=== PATIENT | female | born 1950 | race Asian ===

== ENCOUNTER 2024-10-15 00:53 | Inpatient (IN) | payer MEDICARE, MEDICAID ==
[2024-10-15] VITALS (14 sets, daily range): BP systolic 103–158; BP diastolic 58–91; PULSE 69–119; RESP 20–33; TEMP 98.4–100; O2SAT 97–100
[~2024-10-15] VITALS: Ht 154.9 cm; Wt 49.6 kg
[2024-10-15] MEDS: NITROGLYCERIN 50 MG/D5% WATER 250 ML IV PRN (01:16)
[2024-10-15] MEDS: FUROSEMIDE 40 MG/4 ML VIAL IVP ONE (01:16)
[2024-10-15] MEDS: PROPOFOL 1000 MG/ISO-OSM 100 ML IV PRN ×2 (01:16→15:33)
[2024-10-15 01:41] LABS: BASOPHILS % (AUTO) 0.6 % (0.0-2.0); EOSINOPHILS % (AUTO) 3.2 % (1.0-6.0); HEMATOCRIT 31.4 % (36-46); HEMOGLOBIN 9.7 g/dL (12.0-16.0); LYMPHOCYTES # (AUTO) 2.5 K/uL (1.0-4.8); LYMPHOCYTES % (AUTO) 25.1 % (22.0-44.0); MEAN CORPUSCULAR HEMOGLOBIN 26.2 pg (26.0-34.0); MEAN CORPUSCULAR HGB CONC 30.9 G/dL (31.0-37.0); MEAN CORPUSCULAR VOLUME 85 fL (80-100); MONOCYTES # (AUTO) 0.6 K/uL (0.1-1.0); MONOCYTES % (AUTO) 5.6 % (2.0-9.0); NEUTROPHILS # (AUTO) 6.5 K/uL (1.8-7.7); NEUTROPHILS % (AUTO) 65.5 % (40.0-70.0); PLATELET COUNT (AUTO) 224 K/uL (150-450); RED CELL DISTRIBUTION WIDTH 16.1 % (11.5-14.5); WHITE BLOOD COUNT (AUTO) 9.9 K/uL (4.5-11.0)
[2024-10-15 01:48] LABS: APPEARANCE,URINE CLEAR (CLEAR); BILIRUBIN,URINE NEGATIVE (NEGATIVE); COLOR,URINE COLORLESS (YELLOW); GLUCOSE, URINE (UA) >=1000 mg/dL (NEGATIVE); KETONES,URINE NEGATIVE (NEGATIVE); LEUKOCYTE ESTERASE ,URINE NEGATIVE (NEGATIVE); NITRATE,URINE NEGATIVE (NEGATIVE); OCCULT BLOOD,URINE SMALL (NEGATIVE); PH,URINE 6.5 (5.0-8.0); PROTEIN,URINE 100-200,SEE CONFIRM mg/dL (NEGATIVE); SPECIFIC GRAVITIY, URINE 1.009 (1.003-1.030); UROBILINOGEN,URINE <=1.0 mg/dL (<=1.0)
[2024-10-15 01:49] LABS: ABG BASE EXCESS -7.9 mmol/L (-2.0-3.0); ABG CARBOXYHEMOGLOBIN 0.2 % (0.5-1.5); ABG HCO3 17.9 mmol/L (21.0-28.0); ABG METHEMOGLOBIN 0.3 % (0.0-1.5); ABG OXYGEN SATURATION 95.1 % (94.0-98.0); ABG OXYHEMOGLOBIN 94.6 % (94.0-98.0); ABG PCO2 57 mmHg (32.0-45.0); ABG TOTAL HEMOGLOBIN 10.4 G/dL (12.0-16.0); PO2, ARTERIAL BG 94.8 mmHg (83.0-108.0); SOURCE, BLOOD GAS ARTERIAL; TEMPERATURE, FAHRENHEIT, BG 97.3 FAHREN (96.0-98.6)
[2024-10-15 01:51] LABS: ABG A-A DIFF O2 563.1 mmHg (10-20.0); ABG PH 7.175 (7.350-7.450); ALLEN TEST, BLOOD GAS Positive; O2 DEVICE,BLOOD GAS VENT (ROOM AIR); PEEP,BG 5 cm H2O; SITE, BLOOD GAS LFT RADIAL; VT, ABG 350 ml
[2024-10-15] MEDS: LABETALOL HCL 5 MG/ML 20 ML VIAL IVP ONE (01:53)
[2024-10-15 01:55] LABS: BILIRUBIN,DIRECT 0.1 mg/dL (0.00-0.20); BILIRUBIN,TOTAL 0.3 mg/dL (0.1-1.0)
[2024-10-15 01:56] LABS: PROTHROMBIN TIME 10.3 SEC (9.4-11.6)
[2024-10-15 01:58] LABS: B-TYPE NATRIURETIC PEPTIDE 446 pg/mL (0-100)
[2024-10-15] MEDS ORDERED: NIFE-78 PO (02:02)
[2024-10-15] MEDS ORDERED: INSU3INS3 SQ (02:02)
[2024-10-15] MEDS ORDERED: GABA-529 PO (02:02)
[2024-10-15] MEDS ORDERED: ATOR40TA71 PO (02:02)
[2024-10-15] MEDS ORDERED: LISI40TA9 PO (02:02)
[2024-10-15 02:05] LABS: RBC,URINE None Seen /HPF (0-2); SULFOSALICYLIC ACID,URINE 2+ (Negative)
[2024-10-15 02:06] LABS: BACTERIA,URINE None Seen /HPF (None Seen); SQUAMOUS EPITHELIAL CELL,UR Few /LPF (None Seen); WBC,URINE None Seen /HPF (0-5)
[2024-10-15 02:19] LABS: ANION GAP 10 mmol/L (8-16); CALCIUM, TOTAL 8.4 mg/dL (8.8-10.5); CARBON DIOXIDE 21 mmol/L (22-29); CHLORIDE 104 mmol/L (98-107); CREATINE KINASE, TOTAL ONLY 329 U/L (26-192); CREATININE 2.43 mg/dL (0.60-1.30); GLOMERULAR FILTR. RATE CALC 19 mL/min (>60); POTASSIUM 3.8 mmol/L (3.5-5.1); SODIUM SERUM 135 mmol/L (136-145); UREA NITROGEN, BLOOD 48 mg/dL (7-18)
[2024-10-15 02:20] LABS: TROPONIN I-HIGH SENSITIVITY 1363 ng/L (<51)
[2024-10-15 02:21] LABS: GLUCOSE,RANDOM 417 mg/dL (70-110)
[2024-10-15] MEDS: INSULIN REGULAR, HUMAN 100 UNITS/ML IVP ONE (02:37)
[2024-10-15] MEDS: POTASSIUM CHL 10 MEQ/WATER 50 ML IV SCH (02:48)
[2024-10-15 03:18] LABS: COVID AG,FIA SOURCE NASAL SWAB
[2024-10-15 03:44] LABS: SARS-COV2 (COVID) ANTIGEN,FIA Negative (Negative)
[2024-10-15 03:46] LABS: INFLUENZA TYPE A NEGATIVE FOR TYPE A (NEGATIVE); INFLUENZA TYPE B NEGATIVE FOR TYPE B (NEGATIVE)
[2024-10-15 04:21] LABS: TROPONIN I-HIGH SENSITIVITY 6584 ng/L (<51)
[2024-10-15] MEDS ORDERED: HEPARIN SODIUM 25000 UNITS/D5W 250 ML IV PRN (05:15)
[2024-10-15 05:16] LABS: GLUCOMETER DEV NAME(LOC) ER.7; GLUCOSE,POINT OF CARE 362 MG/DL (70-110)
[2024-10-15] MEDS ORDERED: SODIUM CHLORIDE 0.9% 100 ML ONE (05:35)
[2024-10-15] MEDS ORDERED: IOHEXOL 350 MG/ML 100 ML VIAL ONE (05:35)
[2024-10-15] MEDS: FentaNYL CIT 1000MCG/0.9% NACL 100 ML IV PRN (07:40)
[2024-10-15] MEDS: ETHYL ALCOHOL 62% ANTISEPTIC NASAL SANITIZER 0.6 ML AMPUL NASAL SCH (09:00)
[2024-10-15 09:35] LABS: CALCIUM, TOTAL 8.6 mg/dL (8.8-10.5); CREATININE 2.48 mg/dL (0.60-1.30); POTASSIUM 4.7 mmol/L (3.5-5.1)
[2024-10-15] MEDS: HEPARIN SODIUM,PORCINE 5,000 UNITS/ML VIAL IVP ONE (09:53)
[2024-10-15 09:54] LABS: BASOPHILS % (AUTO) 0.3 % (0.0-2.0); EOSINOPHILS % (AUTO) 0.3 % (1.0-6.0); HEMATOCRIT 31.3 % (36-46); LYMPHOCYTES # (AUTO) 0.6 K/uL (1.0-4.8); LYMPHOCYTES % (AUTO) 6.3 % (22.0-44.0); MEAN CORPUSCULAR HEMOGLOBIN 26.5 pg (26.0-34.0); MEAN CORPUSCULAR HGB CONC 31.8 G/dL (31.0-37.0); MEAN CORPUSCULAR VOLUME 83 fL (80-100); MONOCYTES # (AUTO) 0.4 K/uL (0.1-1.0); MONOCYTES % (AUTO) 4.6 % (2.0-9.0); NEUTROPHILS # (AUTO) 8.2 K/uL (1.8-7.7); PLATELET COUNT (AUTO) 228 K/uL (150-450); RED BLOOD CELL COUNT(AUTO) 3.77 MIL/uL (4.00-5.20); RED CELL DISTRIBUTION WIDTH 15.6 % (11.5-14.5); WHITE BLOOD COUNT (AUTO) 9.3 K/uL (4.5-11.0)
[2024-10-15 09:55] LABS: NEUTROPHILS % (AUTO) 88.5 % (40.0-70.0)
[2024-10-15] MEDS: ATORVASTATIN CALCIUM 40 MG TABLET NG SCH (10:34)
[2024-10-15] MEDS: ASPIRIN 81 MG CHEWABLE TABLET NG SCH (10:35)
[2024-10-15] MEDS: CARVEDILOL 3.125 MG TABLET NG SCH (10:35)
[2024-10-15] MEDS ORDERED: DEXTROSE 50%-WATER 25 GM/50 ML SYRINGE IVP PRN (10:45)
[2024-10-15] MEDS: *CLINICAL-LEVOFLOXACIN IVPB DOSING CLINICAL ONE (10:47)
[2024-10-15 11:04] LABS: PROTHROMBIN TIME 10.1 SEC (9.4-11.6)
[2024-10-15] MEDS: LEVOFLOXACIN 750 MG/D5% WATER 150 ML IV ONE (11:10)
[2024-10-15] MEDS ORDERED: SODIUM CHLORIDE 0.9% 250 ML IV ONE (11:12)
[2024-10-15] MEDS: HEPARIN SODIUM 25000 UNITS/D5W 250 ML IV PRN (11:13)
[2024-10-15] MEDS: INSULIN LISPRO 100 UNITS/ML SQ PRN (12:08)
[2024-10-15] MEDS: ACETAMINOPHEN 325 MG TABLET PO PRN (12:43)
[2024-10-15 16:31] LABS: GLUCOMETER DEV NAME(LOC) ICUN.5; GLUCOSE,POINT OF CARE 205 MG/DL (70-110)
[2024-10-15 16:36] LABS: APPEARANCE,URINE CLEAR (CLEAR); BILIRUBIN,URINE NEGATIVE (NEGATIVE); COLOR,URINE LIGHT YELLOW (YELLOW); GLUCOSE, URINE (UA) TRACE mg/dL (NEGATIVE); KETONES,URINE NEGATIVE (NEGATIVE); LEUKOCYTE ESTERASE ,URINE NEGATIVE (NEGATIVE); NITRATE,URINE NEGATIVE (NEGATIVE); OCCULT BLOOD,URINE LARGE (NEGATIVE); PH,URINE 5.5 (5.0-8.0); PROTEIN,URINE 100-200,SEE CONFIRM mg/dL (NEGATIVE); SPECIFIC GRAVITIY, URINE 1.033 (1.003-1.030); UROBILINOGEN,URINE <=1.0 mg/dL (<=1.0)
[2024-10-15] MEDS: HEPARIN SODIUM,PORCINE 5,000 UNITS/ML VIAL IVP PRN ×2 (17:03→17:07)
[2024-10-15 17:06] LABS: BACTERIA,URINE Rare /HPF (None Seen); RBC,URINE 51-100 /HPF (0-2)
[2024-10-15 17:40] LABS: GLUCOMETER DEV NAME(LOC) ICU.S6; GLUCOSE,POINT OF CARE 103 MG/DL (70-110)
[2024-10-15] MEDS: PIPERACILLIN SODIUM/TAZOBACTAM 2.25 GM in DEXTROSE 5%-WATER 50 ML IV SCH (18:52)
[2024-10-15 21:05] LABS: GLUCOMETER DEV NAME(LOC) ICU.S6; GLUCOSE,POINT OF CARE 99 MG/DL (70-110)
[2024-10-15] MEDS: CHLORHEXIDINE GLUCONATE 2% TOWELETTE [2'S/6'S] TP SCH (22:30)
[2024-10-16] VITALS (9 sets, daily range): BP systolic 118–143; BP diastolic 65–82; PULSE 68–114; RESP 11–26; TEMP 98.3–99.8; O2SAT 98–100
[2024-10-16] MEDS: FentaNYL CIT 1000MCG/0.9% NACL 100 ML IV PRN (02:46)
[2024-10-16 05:27] LABS: BASOPHILS % (AUTO) 0.3 % (0.0-2.0); EOSINOPHILS % (AUTO) 1.3 % (1.0-6.0); HEMATOCRIT 31.5 % (36-46); LYMPHOCYTES # (AUTO) 1.1 K/uL (1.0-4.8); LYMPHOCYTES % (AUTO) 10.2 % (22.0-44.0); MEAN CORPUSCULAR HEMOGLOBIN 26.5 pg (26.0-34.0); MEAN CORPUSCULAR HGB CONC 31.7 G/dL (31.0-37.0); MEAN CORPUSCULAR VOLUME 84 fL (80-100); MONOCYTES # (AUTO) 0.6 K/uL (0.1-1.0); MONOCYTES % (AUTO) 5.5 % (2.0-9.0); NEUTROPHILS # (AUTO) 9.1 K/uL (1.8-7.7); NEUTROPHILS % (AUTO) 82.7 % (40.0-70.0); PLATELET COUNT (AUTO) 206 K/uL (150-450); RED BLOOD CELL COUNT(AUTO) 3.76 MIL/uL (4.00-5.20); RED CELL DISTRIBUTION WIDTH 15.8 % (11.5-14.5)
[2024-10-16 05:47] LABS: HEMOGLOBIN A1C 8.1 % (3.8-5.6)
[2024-10-16 05:53] LABS: ANION GAP 12 mmol/L (8-16); CALCIUM, TOTAL 8.7 mg/dL (8.8-10.5); CARBON DIOXIDE 24 mmol/L (22-29); CHLORIDE 102 mmol/L (98-107); CHOLESTEROL 182 mg/dL (131-200); CREATININE 2.88 mg/dL (0.60-1.30); GLOMERULAR FILTR. RATE CALC 16 mL/min (>60); GLUCOSE,RANDOM 137 mg/dL (70-110); HDL CHOLESTEROL 92 mg/dL (40-60); LDL CHOL (CALC.) 77 mg/dL (0-130); POTASSIUM 5.8 mmol/L (3.5-5.1); SODIUM SERUM 137 mmol/L (136-145); TRIGLYCERIDES 63 mg/dL (15-150); UREA NITROGEN, BLOOD 66 mg/dL (7-18)
[2024-10-16 05:54] LABS: TROPONIN I-HIGH SENSITIVITY 12001 ng/L (<51)
[2024-10-16 06:11] LABS: GLUCOMETER DEV NAME(LOC) ICUN.5; GLUCOSE,POINT OF CARE 128 MG/DL (70-110)
[2024-10-16] MEDS: DEXMEDETOMIDINE 400 MCG/NS 100 ML IV PRN (08:38)
[2024-10-16] MEDS: PANTOPRAZOLE SODIUM 40 MG/VIAL IVP SCH (08:39)
[2024-10-16] MEDS: SODIUM ZIRCONIUM CYCLOSILICATE 10 GM POWDER PACKET PO ONE (09:16)
[2024-10-16] MEDS: ONDANSETRON HCL 4 MG/2 ML VIAL IVP PRN (11:08)
[2024-10-16 11:22] LABS: ABG A-A DIFF O2 94.3 mmHg (10-20.0); ABG BASE EXCESS -6.3 mmol/L (-2.0-3.0); ABG CARBOXYHEMOGLOBIN 0.3 % (0.5-1.5); ABG HCO3 19.7 mmol/L (21.0-28.0); ABG METHEMOGLOBIN 0.3 % (0.0-1.5); ABG OXYGEN CONTENT 14.9 mL/dL (15.0-23.0); ABG OXYGEN SATURATION 97.5 % (94.0-98.0); ABG OXYHEMOGLOBIN 96.9 % (94.0-98.0); ABG PCO2 40 mmHg (32.0-45.0); ABG PH 7.318 (7.350-7.450); ABG TOTAL HEMOGLOBIN 10.8 G/dL (12.0-16.0); ALLEN TEST, BLOOD GAS Positive; O2 DEVICE,BLOOD GAS VENTILATOR (ROOM AIR); PEEP,BG 0 cm H2O; PO2, ARTERIAL BG 108.9 mmHg (83.0-108.0); PRESSURE SUPPORT, BG 5 cm H2O; SITE, BLOOD GAS LFT RADIAL; SOURCE, BLOOD GAS ARTERIAL; TEMPERATURE, FAHRENHEIT, BG 99.3 FAHREN (96.0-98.6); VENT MODE, BG CPAP (ROOM AIR)
[2024-10-16 11:23] LABS: SPONTANEOUS VT, BG 605 ml
[2024-10-16 17:20] LABS: GLUCOMETER DEV NAME(LOC) ICU.S6; GLUCOSE,POINT OF CARE 175 MG/DL (70-110)
[2024-10-16 18:46] LABS: GLUCOMETER DEV NAME(LOC) ICU.S6; GLUCOSE,POINT OF CARE 154 MG/DL (70-110)
[2024-10-16] MEDS ORDERED: SODIUM CHLORIDE 0.9% 250 ML IV ONE (19:07)
[2024-10-16 23:56] LABS: GLUCOMETER DEV NAME(LOC) ICU.S6; GLUCOSE,POINT OF CARE 147 MG/DL (70-110)
[2024-10-17] VITALS (19 sets, daily range): BP systolic 132–178; BP diastolic 68–93; PULSE 62–100; RESP 11–19; TEMP 98.6–99.9; O2SAT 95–99
[2024-10-17 06:21] LABS: BASOPHILS % (AUTO) 0.3 % (0.0-2.0); EOSINOPHILS % (AUTO) 1.3 % (1.0-6.0); HEMATOCRIT 25.2 % (36-46); HEMOGLOBIN 8.1 g/dL (12.0-16.0); LYMPHOCYTES # (AUTO) 0.9 K/uL (1.0-4.8); LYMPHOCYTES % (AUTO) 12.2 % (22.0-44.0); MEAN CORPUSCULAR HEMOGLOBIN 26.5 pg (26.0-34.0); MEAN CORPUSCULAR HGB CONC 32.1 G/dL (31.0-37.0); MEAN CORPUSCULAR VOLUME 83 fL (80-100); MONOCYTES # (AUTO) 0.6 K/uL (0.1-1.0); MONOCYTES % (AUTO) 7.4 % (2.0-9.0); NEUTROPHILS # (AUTO) 5.9 K/uL (1.8-7.7); NEUTROPHILS % (AUTO) 78.8 % (40.0-70.0); PLATELET COUNT (AUTO) 194 K/uL (150-450); RED BLOOD CELL COUNT(AUTO) 3.05 MIL/uL (4.00-5.20); RED CELL DISTRIBUTION WIDTH 15.8 % (11.5-14.5); WHITE BLOOD COUNT (AUTO) 7.4 K/uL (4.5-11.0)
[2024-10-17 06:30] LABS: GLUCOMETER DEV NAME(LOC) ICU.S6; GLUCOSE,POINT OF CARE 186 MG/DL (70-110)
[2024-10-17 06:31] LABS: ALANINE AMINOTRANSFERASE 27 U/L (12-78); ALBUMIN 2.4 g/dL (3.4-5.0); ALKALINE PHOSPHATASE 81 U/L (46-116); ANION GAP 13 mmol/L (8-16); ASPARTATE AMINOTRANSFERASE 41 U/L (15-37); BILIRUBIN,TOTAL 0.4 mg/dL (0.1-1.0); CALCIUM, TOTAL 8.4 mg/dL (8.8-10.5); CARBON DIOXIDE 20 mmol/L (22-29); CHLORIDE 101 mmol/L (98-107); CREATININE 4.34 mg/dL (0.60-1.30); GLOMERULAR FILTR. RATE CALC 10 mL/min (>60); GLUCOSE,RANDOM 195 mg/dL (70-110); POTASSIUM 4.4 mmol/L (3.5-5.1); SODIUM SERUM 134 mmol/L (136-145); TOTAL PROTEIN, SERUM 6.2 g/dL (6.4-8.2); UREA NITROGEN, BLOOD 78 mg/dL (7-18)
[2024-10-17] MEDS ORDERED: HEPARIN SODIUM 1000 UNITS/NS 1,000 ML ONE (07:13)
[2024-10-17] MEDS ORDERED: IOHEXOL 300 MG/ML 100 ML VIAL ONE (07:13)
[2024-10-17] MEDS ORDERED: LIDOCAINE/PF 1% 30 ML VIAL ONE (07:13)
[2024-10-17] MEDS ORDERED: SODIUM BICARBONATE 50 MEQ/50 ML VIAL ONE (07:13)
[2024-10-17] MEDS ORDERED: NITROGLYCERIN 50 MG/D5% WATER 250 ML ONE (07:15)
[2024-10-17] MEDS ORDERED: VERAPAMIL HCL 2.5 MG/ML 2 ML VIAL ONE (07:15)
[2024-10-17 07:41] LABS: TROPONIN I-HIGH SENSITIVITY 7840 ng/L (<51)
[2024-10-17] MEDS ORDERED: MIDAZOLAM HCL 2 MG/2 ML VIAL ONE (07:50)
[2024-10-17] MEDS ORDERED: FentaNYL CITRATE PF 100 MCG/2 ML VIAL ONE (07:50)
[2024-10-17] MEDS: VERAPAMIL HCL 2.5 MG/ML 2 ML VIAL IARTER ONE (08:30)
[2024-10-17] MEDS: LIDOCAINE 1% 30 ML/SOD BICARB 8.4% 4 ML SQ ONE (08:30)
[2024-10-17] MEDS: IOHEXOL 300 MG/ML 100 ML VIAL ICOR ONE (08:30)
[2024-10-17] MEDS: HEPARIN SODIUM 1000 UNITS/NS 1,000 ML IARTER ONE (08:30)
[2024-10-17] MEDS: HEPARIN SODIUM,PORCINE 1,000 UNITS/ML 10 ML VIAL IARTER ONE (08:31)
[2024-10-17] MEDS: NITROGLYCERIN/D5W 50 MG/250 ML IV BOTTLE IARTER ONE (08:32)
[2024-10-17] MEDS: MIDAZOLAM HCL 2 MG/2 ML VIAL IVP ONE (08:32)
[2024-10-17] MEDS ORDERED: IOHEXOL 300 MG/ML 50 ML VIAL ONE ×2 (08:32→08:47)
[2024-10-17] MEDS: HEPARIN SODIUM,PORCINE 1,000 UNITS/ML 10 ML VIAL IVP ONE ×2 (08:32→08:56)
[2024-10-17] MEDS: FentaNYL CITRATE PF 100 MCG/2 ML VIAL IVP ONE (08:33)
[2024-10-17] MEDS ORDERED: ATROPINE SULFATE 0.1 MG/ML 10 ML SYRINGE IVP ONE (09:01)
[2024-10-17] MEDS: IOHEXOL 300 MG/ML 50 ML VIAL IARTER ONE ×2 (09:07→09:08)
[2024-10-17] MEDS ORDERED: ATROPINE SULFATE 1 MG/ML VIAL IVP ONE (09:15)
[2024-10-17] MEDS ORDERED: ASPIRIN 81 MG CHEWABLE TABLET ONE (09:15)
[2024-10-17] MEDS ORDERED: TICAGRELOR 90 MG TABLET ONE (09:15)
[2024-10-17] MEDS: ATROPINE SULFATE 0.1 MG/ML 10 ML SYRINGE IVP ONE (09:18)
[2024-10-17] MEDS: ASPIRIN 81 MG CHEWABLE TABLET PO ONE (09:24)
[2024-10-17] MEDS: TICAGRELOR 90 MG TABLET PO ONE (09:25)
[2024-10-17] MEDS: PARICALCITOL 1 MCG CAPSULE PO SCH (09:57)
[2024-10-17] MEDS: LEVOFLOXACIN 500 MG/D5% WATER 100 ML IV SCH (10:19)
[2024-10-17 13:41] LABS: GLUCOMETER DEV NAME(LOC) ICU.S6; GLUCOSE,POINT OF CARE 196 MG/DL (70-110)
[2024-10-17] MEDS ORDERED: SODIUM CHLORIDE 0.9% 250 ML IV ONE (15:58)
[2024-10-17] MEDS: TICAGRELOR 90 MG TABLET PO SCH (20:57)
[2024-10-17] MEDS: HEPARIN SODIUM,PORCINE 5,000 UNITS/ML VIAL SQ SCH (20:57)
[2024-10-17 23:51] LABS: GLUCOMETER DEV NAME(LOC) 5N.1D; GLUCOSE,POINT OF CARE 192 MG/DL (70-110)
[2024-10-17 23:51] LABS: GLUCOMETER DEV NAME(LOC) 5N.1D; GLUCOSE,POINT OF CARE 212 MG/DL (70-110)
[2024-10-18] VITALS (13 sets, daily range): BP systolic 129–166; BP diastolic 62–84; PULSE 50–102; RESP 16–19; TEMP 97.7–98.8; O2SAT 0–98
[2024-10-18] MEDS ORDERED: HydrALAZINE HCL 20 MG/ML VIAL ONE (00:11)
[2024-10-18] MEDS: HydrALAZINE HCL 20 MG/ML VIAL IVP PRN (00:15)
[2024-10-18 07:16] LABS: BASOPHILS % (AUTO) 0.2 % (0.0-2.0); EOSINOPHILS % (AUTO) 0.4 % (1.0-6.0); HEMATOCRIT 26.8 % (36-46); HEMOGLOBIN 8.7 g/dL (12.0-16.0); LYMPHOCYTES # (AUTO) 0.6 K/uL (1.0-4.8); LYMPHOCYTES % (AUTO) 7.7 % (22.0-44.0); MEAN CORPUSCULAR HEMOGLOBIN 26.6 pg (26.0-34.0); MEAN CORPUSCULAR HGB CONC 32.6 G/dL (31.0-37.0); MEAN CORPUSCULAR VOLUME 82 fL (80-100); MONOCYTES # (AUTO) 0.3 K/uL (0.1-1.0); MONOCYTES % (AUTO) 3.9 % (2.0-9.0); NEUTROPHILS # (AUTO) 7.4 K/uL (1.8-7.7); PLATELET COUNT (AUTO) 215 K/uL (150-450); RED BLOOD CELL COUNT(AUTO) 3.28 MIL/uL (4.00-5.20); RED CELL DISTRIBUTION WIDTH 15.6 % (11.5-14.5); WHITE BLOOD COUNT (AUTO) 8.4 K/uL (4.5-11.0)
[2024-10-18 07:20] LABS: NEUTROPHILS % (AUTO) 87.8 % (40.0-70.0)
[2024-10-18 07:39] LABS: CALCIUM, TOTAL 8.6 mg/dL (8.8-10.5); CREATININE 5.63 mg/dL (0.60-1.30); POTASSIUM 4.4 mmol/L (3.5-5.1)
[2024-10-18] MEDS: AmLODIPine BESYLATE 10 MG TABLET PO SCH (07:59)
[2024-10-18 08:12] LABS: TROPONIN I-HIGH SENSITIVITY 12395 ng/L (<51)
[2024-10-18] MEDS: SODIUM CHLORIDE 0.9% 1,000 ML IV ONE (08:55)
[2024-10-18 12:06] LABS: GLUCOMETER DEV NAME(LOC) 5N.1D; GLUCOSE,POINT OF CARE 210 MG/DL (70-110)
[2024-10-18 17:51] LABS: GLUCOMETER DEV NAME(LOC) 5N.1D; GLUCOSE,POINT OF CARE 224 MG/DL (70-110)
[2024-10-18 21:00] LABS: GLUCOMETER DEV NAME(LOC) 5N.2C; GLUCOSE,POINT OF CARE 232 MG/DL (70-110)
[2024-10-18 21:00] LABS: GLUCOMETER DEV NAME(LOC) 5N.2C; GLUCOSE,POINT OF CARE 343 MG/DL (70-110)
[2024-10-19] VITALS (14 sets, daily range): BP systolic 112–196; BP diastolic 57–88; PULSE 46–94; RESP 18–20; TEMP 97–98.5; O2SAT 94–98
[2024-10-19 06:11] LABS: GLUCOMETER DEV NAME(LOC) 5N.1D; GLUCOSE,POINT OF CARE 184 MG/DL (70-110)
[2024-10-19 07:24] LABS: ANION GAP 19 mmol/L (8-16); CALCIUM, TOTAL 7.9 mg/dL (8.8-10.5); CARBON DIOXIDE 16 mmol/L (22-29); CHLORIDE 98 mmol/L (98-107); GLOMERULAR FILTR. RATE CALC 5 mL/min (>60); GLUCOSE,RANDOM 172 mg/dL (70-110); POTASSIUM 4.2 mmol/L (3.5-5.1); SODIUM SERUM 133 mmol/L (136-145)
[2024-10-19 07:36] LABS: TROPONIN I-HIGH SENSITIVITY 10754 ng/L (<51); UREA NITROGEN, BLOOD 104 mg/dL (7-18)
[2024-10-19] MEDS ORDERED: LIDOCAINE/PF 1% 30 ML VIAL ONE (08:31)
[2024-10-19] MEDS ORDERED: SODIUM BICARBONATE 50 MEQ/50 ML VIAL ONE (08:31)
[2024-10-19] MEDS: LIDOCAINE 1% 30 ML/SOD BICARB 8.4% 4 ML SQ ONE (09:22)
[2024-10-19] MEDS ORDERED: HydrALAZINE HCL 20 MG/ML VIAL IVP PRN (09:45)
[2024-10-19] MEDS: HydrALAZINE HCL 25 MG TABLET PO SCH (10:16)
[2024-10-19] MEDS: EPOETIN ALFA 10,000 UNITS/ML VIAL SQ SCH (10:17)
[2024-10-19] MEDS ORDERED: MANNITOL 25%-12.5 GM/50 ML VIAL IVP ONE (12:00)
[2024-10-19] MEDS ORDERED: HEPARIN SODIUM,PORCINE 1,000 UNITS/ML VIAL ONE (12:00)
[2024-10-19 12:21] LABS: GLUCOMETER DEV NAME(LOC) 5N.2C; GLUCOSE,POINT OF CARE 252 MG/DL (70-110)
[2024-10-19] MEDS ORDERED: MANNITOL 25%-12.5 GM/50 ML VIAL IVP PRN (15:15)
[2024-10-20] VITALS (16 sets, daily range): BP systolic 119–155; BP diastolic 54–99; PULSE 59–104; RESP 17–18; TEMP 96.8–99; O2SAT 94–98
[2024-10-20 07:35] LABS: BASOPHILS % (AUTO) 0.1 % (0.0-2.0); EOSINOPHILS % (AUTO) 2.1 % (1.0-6.0); HEMATOCRIT 25.7 % (36-46); HEMOGLOBIN 8.4 g/dL (12.0-16.0); LYMPHOCYTES # (AUTO) 0.8 K/uL (1.0-4.8); LYMPHOCYTES % (AUTO) 13.7 % (22.0-44.0); MEAN CORPUSCULAR HEMOGLOBIN 26.3 pg (26.0-34.0); MEAN CORPUSCULAR HGB CONC 32.6 G/dL (31.0-37.0); MEAN CORPUSCULAR VOLUME 81 fL (80-100); MONOCYTES # (AUTO) 0.7 K/uL (0.1-1.0); MONOCYTES % (AUTO) 11.5 % (2.0-9.0); NEUTROPHILS # (AUTO) 4.4 K/uL (1.8-7.7); NEUTROPHILS % (AUTO) 72.6 % (40.0-70.0); PLATELET COUNT (AUTO) 202 K/uL (150-450); RED BLOOD CELL COUNT(AUTO) 3.19 MIL/uL (4.00-5.20); RED CELL DISTRIBUTION WIDTH 15.3 % (11.5-14.5)
[2024-10-20 07:46] LABS: CALCIUM, TOTAL 8.4 mg/dL (8.8-10.5); CREATININE 5.81 mg/dL (0.60-1.30); POTASSIUM 3.6 mmol/L (3.5-5.1)
[2024-10-20 09:51] LABS: GLUCOMETER DEV NAME(LOC) 5N.2C; GLUCOSE,POINT OF CARE 158 MG/DL (70-110)
[2024-10-20 09:51] LABS: GLUCOMETER DEV NAME(LOC) 5N.1D; GLUCOSE,POINT OF CARE 175 MG/DL (70-110)
[2024-10-20 09:55] LABS: GLUCOMETER DEV NAME(LOC) 5N.2C; GLUCOSE,POINT OF CARE 115 MG/DL (70-110)
[2024-10-20 09:55] LABS: GLUCOMETER DEV NAME(LOC) 5N.1D; GLUCOSE,POINT OF CARE 151 MG/DL (70-110)
[2024-10-20] MEDS ORDERED: SODIUM CHLORIDE 0.9% 1,000 ML ONE ×2 (11:13)
[2024-10-20 12:05] LABS: GLUCOMETER DEV NAME(LOC) 5N.2C; GLUCOSE,POINT OF CARE 184 MG/DL (70-110)
[2024-10-20] MEDS: HEPARIN SODIUM,PORCINE 1,000 UNITS/ML VIAL IVCATH ONE (17:10)
[2024-10-20 18:51] LABS: GLUCOMETER DEV NAME(LOC) 5N.2C; GLUCOSE,POINT OF CARE 128 MG/DL (70-110)
[2024-10-20 23:06] LABS: GLUCOMETER DEV NAME(LOC) 5N.2C; GLUCOSE,POINT OF CARE 236 MG/DL (70-110)
[2024-10-21] VITALS (14 sets, daily range): BP systolic 89–156; BP diastolic 65–85; PULSE 81–104; RESP 16–18; TEMP 97.7–99.1; O2SAT 95–99
[2024-10-21 06:36] LABS: GLUCOMETER DEV NAME(LOC) 5N.2C; GLUCOSE,POINT OF CARE 169 MG/DL (70-110)
[2024-10-21 09:25] LABS: BASOPHILS % (AUTO) 0.2 % (0.0-2.0); EOSINOPHILS % (AUTO) 2.2 % (1.0-6.0); HEMATOCRIT 24.9 % (36-46); HEMOGLOBIN 8.2 g/dL (12.0-16.0); LYMPHOCYTES # (AUTO) 0.7 K/uL (1.0-4.8); LYMPHOCYTES % (AUTO) 11.7 % (22.0-44.0); MEAN CORPUSCULAR HEMOGLOBIN 26.9 pg (26.0-34.0); MEAN CORPUSCULAR HGB CONC 33.1 G/dL (31.0-37.0); MEAN CORPUSCULAR VOLUME 81 fL (80-100); MONOCYTES % (AUTO) 16.1 % (2.0-9.0); NEUTROPHILS # (AUTO) 4.4 K/uL (1.8-7.7); NEUTROPHILS % (AUTO) 69.8 % (40.0-70.0); PLATELET COUNT (AUTO) 204 K/uL (150-450); RED BLOOD CELL COUNT(AUTO) 3.06 MIL/uL (4.00-5.20); RED CELL DISTRIBUTION WIDTH 15.3 % (11.5-14.5); WHITE BLOOD COUNT (AUTO) 6.3 K/uL (4.5-11.0)
[2024-10-21 09:37] LABS: ALBUMIN 2.3 g/dL (3.4-5.0); BILIRUBIN,TOTAL 0.4 mg/dL (0.1-1.0); CREATININE 4.22 mg/dL (0.60-1.30); POTASSIUM 3.6 mmol/L (3.5-5.1); TOTAL PROTEIN, SERUM 6.1 g/dL (6.4-8.2)
[2024-10-21] MEDS ORDERED: SODIUM CHLORIDE 0.9% 2,000 ML ONE (13:55)
[2024-10-21] MEDS ORDERED: HEPARIN SODIUM,PORCINE 1,000 UNITS/ML VIAL ONE ×2 (16:45→16:49)
[2024-10-21] MEDS: HEPARIN SODIUM,PORCINE 1,000 UNITS/ML VIAL IVCATH ONE (17:10)
[2024-10-21 21:41] LABS: GLUCOMETER DEV NAME(LOC) 5N.2C; GLUCOSE,POINT OF CARE 181 MG/DL (70-110)
[2024-10-21 21:41] LABS: GLUCOMETER DEV NAME(LOC) 5N.2C; GLUCOSE,POINT OF CARE 250 MG/DL (70-110)
[2024-10-21 21:41] LABS: GLUCOMETER DEV NAME(LOC) 5N.2C; GLUCOSE,POINT OF CARE 130 MG/DL (70-110)
[2024-10-22] MEDS ORDERED: SODIUM CHLORIDE 0.9% 500 ML IV ONE (01:56)
[2024-10-22 04:00] VITALS: BP 148/66; PULSE 86; RESP 17; TEMP 98.2; O2SAT 97
[2024-10-22 06:25] LABS: BASOPHILS % (AUTO) 0.3 % (0.0-2.0); EOSINOPHILS % (AUTO) 4.1 % (1.0-6.0); HEMATOCRIT 25.4 % (36-46); HEMOGLOBIN 8.2 g/dL (12.0-16.0); LYMPHOCYTES # (AUTO) 0.9 K/uL (1.0-4.8); LYMPHOCYTES % (AUTO) 13.8 % (22.0-44.0); MEAN CORPUSCULAR HEMOGLOBIN 26.5 pg (26.0-34.0); MEAN CORPUSCULAR HGB CONC 32.3 G/dL (31.0-37.0); MEAN CORPUSCULAR VOLUME 82 fL (80-100); MONOCYTES # (AUTO) 0.8 K/uL (0.1-1.0); MONOCYTES % (AUTO) 13.5 % (2.0-9.0); NEUTROPHILS # (AUTO) 4.2 K/uL (1.8-7.7); NEUTROPHILS % (AUTO) 68.3 % (40.0-70.0); PLATELET COUNT (AUTO) 205 K/uL (150-450); RED BLOOD CELL COUNT(AUTO) 3.11 MIL/uL (4.00-5.20); RED CELL DISTRIBUTION WIDTH 15.3 % (11.5-14.5); WHITE BLOOD COUNT (AUTO) 6.2 K/uL (4.5-11.0)
[2024-10-22 07:04] LABS: CALCIUM, TOTAL 8.3 mg/dL (8.8-10.5); CREATININE 2.8 mg/dL (0.60-1.30); POTASSIUM 3.6 mmol/L (3.5-5.1)
[2024-10-22 08:00] VITALS: BP 145/70; PULSE 88; RESP 18; TEMP 98.2; O2SAT 99
[2024-10-22 08:16] LABS: GLUCOMETER DEV NAME(LOC) 5N.2C; GLUCOSE,POINT OF CARE 134 MG/DL (70-110)
[2024-10-22 11:40] LABS: GLUCOMETER DEV NAME(LOC) 5N.2C; GLUCOSE,POINT OF CARE 181 MG/DL (70-110)
[2024-10-22 12:00] VITALS: BP 150/73; PULSE 98; RESP 18; TEMP 98; O2SAT 98
[2024-10-22 16:00] VITALS: BP 137/75; PULSE 81; RESP 18; TEMP 98.2; O2SAT 99
[2024-10-22 17:20] LABS: GLUCOMETER DEV NAME(LOC) 5N.2C; GLUCOSE,POINT OF CARE 234 MG/DL (70-110)
[2024-10-22 20:54] VITALS: BP 119/58; PULSE 82; RESP 18; TEMP 98.8; O2SAT 97
[2024-10-23] VITALS (13 sets, daily range): BP systolic 128–168; BP diastolic 55–89; PULSE 68–94; RESP 17–18; TEMP 98–98.6; O2SAT 97–99
[2024-10-23 01:35] LABS: GLUCOMETER DEV NAME(LOC) 5N.2C; GLUCOSE,POINT OF CARE 227 MG/DL (70-110)
[2024-10-23 07:02] LABS: BASOPHILS % (AUTO) 0.2 % (0.0-2.0); EOSINOPHILS % (AUTO) 2.3 % (1.0-6.0); HEMATOCRIT 26.3 % (36-46); HEMOGLOBIN 8.6 g/dL (12.0-16.0); LYMPHOCYTES # (AUTO) 0.8 K/uL (1.0-4.8); MEAN CORPUSCULAR HEMOGLOBIN 26.7 pg (26.0-34.0); MEAN CORPUSCULAR HGB CONC 32.6 G/dL (31.0-37.0); MEAN CORPUSCULAR VOLUME 82 fL (80-100); MONOCYTES # (AUTO) 1.1 K/uL (0.1-1.0); MONOCYTES % (AUTO) 14.4 % (2.0-9.0); NEUTROPHILS # (AUTO) 5.3 K/uL (1.8-7.7); NEUTROPHILS % (AUTO) 72.1 % (40.0-70.0); PLATELET COUNT (AUTO) 223 K/uL (150-450); RED BLOOD CELL COUNT(AUTO) 3.21 MIL/uL (4.00-5.20); RED CELL DISTRIBUTION WIDTH 15.6 % (11.5-14.5); WHITE BLOOD COUNT (AUTO) 7.3 K/uL (4.5-11.0)
[2024-10-23 07:11] LABS: CALCIUM, TOTAL 8.4 mg/dL (8.8-10.5); CREATININE 3.55 mg/dL (0.60-1.30); POTASSIUM 3.7 mmol/L (3.5-5.1)
[2024-10-23 08:31] LABS: GLUCOMETER DEV NAME(LOC) 5N.2C; GLUCOSE,POINT OF CARE 146 MG/DL (70-110)
[2024-10-23] MEDS ORDERED: EPOETIN ALFA 10,000 UNITS/ML VIAL SQ SCH (09:00)
[2024-10-23 11:51] LABS: GLUCOMETER DEV NAME(LOC) 5N.2C; GLUCOSE,POINT OF CARE 178 MG/DL (70-110)
[2024-10-23] MEDS ORDERED: HEPARIN SODIUM,PORCINE 1,000 UNITS/ML VIAL ONE (12:00)
[2024-10-23] MEDS ORDERED: SODIUM CHLORIDE 0.9% 2,000 ML ONE (15:07)
[2024-10-23 17:40] LABS: GLUCOMETER DEV NAME(LOC) 5N.2C; GLUCOSE,POINT OF CARE 150 MG/DL (70-110)
[2024-10-23] MEDS: HEPARIN SODIUM,PORCINE 1,000 UNITS/ML VIAL IVCATH ONE ×2 (19:12)
[2024-10-24] VITALS (18 sets, daily range): BP systolic 118–180; BP diastolic 52–105; PULSE 58–107; RESP 16–18; TEMP 97.8–99.1; O2SAT 97–100
[2024-10-24 06:10] LABS: GLUCOMETER DEV NAME(LOC) 5N.2C; GLUCOSE,POINT OF CARE 230 MG/DL (70-110)
[2024-10-24 06:40] LABS: GLUCOMETER DEV NAME(LOC) 5N.2C; GLUCOSE,POINT OF CARE 172 MG/DL (70-110)
[2024-10-24] MEDS ORDERED: LIDOCAINE/PF 1% 30 ML VIAL ONE (09:05)
[2024-10-24] MEDS ORDERED: SODIUM BICARBONATE 50 MEQ/50 ML VIAL ONE (09:05)
[2024-10-24] MEDS ORDERED: MIDAZOLAM HCL 2 MG/2 ML VIAL ONE (09:39)
[2024-10-24] MEDS ORDERED: FentaNYL CITRATE PF 100 MCG/2 ML VIAL ONE (09:39)
[2024-10-24] MEDS: LIDOCAINE 1% 30 ML/SOD BICARB 8.4% 4 ML SQ ONE (10:02)
[2024-10-24] MEDS ORDERED: SODIUM CHLORIDE 0.9% 2,000 ML ONE (10:33)
[2024-10-24 12:36] LABS: GLUCOMETER DEV NAME(LOC) 5N.2C; GLUCOSE,POINT OF CARE 147 MG/DL (70-110)
[2024-10-24] MEDS: HEPARIN SODIUM,PORCINE 1,000 UNITS/ML VIAL IVCATH PRN ×2 (14:26)
[2024-10-24] MEDS ORDERED: HEPARIN SODIUM,PORCINE 1,000 UNITS/ML VIAL IVP ONE (16:38)
[2024-10-24 17:35] LABS: GLUCOMETER DEV NAME(LOC) 5N.2C; GLUCOSE,POINT OF CARE 256 MG/DL (70-110)
[2024-10-25 01:16] LABS: GLUCOMETER DEV NAME(LOC) 5N.2C; GLUCOSE,POINT OF CARE 210 MG/DL (70-110)
[2024-10-25 04:15] VITALS: BP 135/55; PULSE 101; RESP 19; TEMP 98.9; O2SAT 99
[2024-10-25 07:41] LABS: GLUCOMETER DEV NAME(LOC) 5N.2C; GLUCOSE,POINT OF CARE 172 MG/DL (70-110)
[2024-10-25 08:00] VITALS: BP 126/77; PULSE 77; RESP 18; TEMP 98.2; O2SAT 100
[2024-10-25 11:05] VITALS: BP 126/71; PULSE 90; RESP 16; TEMP 98.2; O2SAT 99
[2024-10-25 11:21] LABS: GLUCOMETER DEV NAME(LOC) 5N.2C; GLUCOSE,POINT OF CARE 143 MG/DL (70-110)
[2024-10-25 15:19] VITALS: BP 117/47; PULSE 80; RESP 16; TEMP 98.2; O2SAT 99
[2024-10-25 17:31] LABS: GLUCOMETER DEV NAME(LOC) 5N.2C; GLUCOSE,POINT OF CARE 391 MG/DL (70-110)
[2024-10-25 20:00] VITALS: BP 130/65; PULSE 89; RESP 18; TEMP 98.8; O2SAT 98
[2024-10-25 22:21] LABS: GLUCOMETER DEV NAME(LOC) 5N.2C; GLUCOSE,POINT OF CARE 211 MG/DL (70-110)
[2024-10-26] VITALS (14 sets, daily range): BP systolic 118–153; BP diastolic 66–88; PULSE 80–92; RESP 14–18; TEMP 97.9–98.4; O2SAT 96–100
[2024-10-26 00:45] LABS: GLUCOMETER DEV NAME(LOC) 5N.2C; GLUCOSE,POINT OF CARE 131 MG/DL (70-110)
[2024-10-26 06:10] LABS: GLUCOMETER DEV NAME(LOC) 5N.2C; GLUCOSE,POINT OF CARE 174 MG/DL (70-110)
[2024-10-26 06:46] LABS: BASOPHILS % (AUTO) 0.6 % (0.0-2.0); EOSINOPHILS % (AUTO) 4.8 % (1.0-6.0); HEMATOCRIT 25.3 % (36-46); HEMOGLOBIN 8.3 g/dL (12.0-16.0); LYMPHOCYTES # (AUTO) 1.4 K/uL (1.0-4.8); LYMPHOCYTES % (AUTO) 17.1 % (22.0-44.0); MEAN CORPUSCULAR HGB CONC 32.8 G/dL (31.0-37.0); MEAN CORPUSCULAR VOLUME 82 fL (80-100); MONOCYTES # (AUTO) 0.8 K/uL (0.1-1.0); MONOCYTES % (AUTO) 10.1 % (2.0-9.0); NEUTROPHILS # (AUTO) 5.6 K/uL (1.8-7.7); NEUTROPHILS % (AUTO) 67.4 % (40.0-70.0); PLATELET COUNT (AUTO) 277 K/uL (150-450); RED BLOOD CELL COUNT(AUTO) 3.07 MIL/uL (4.00-5.20); RED CELL DISTRIBUTION WIDTH 15.4 % (11.5-14.5); WHITE BLOOD COUNT (AUTO) 8.3 K/uL (4.5-11.0)
[2024-10-26 07:09] LABS: CALCIUM, TOTAL 8.7 mg/dL (8.8-10.5); CREATININE 2.98 mg/dL (0.60-1.30); POTASSIUM 4.1 mmol/L (3.5-5.1)
[2024-10-26] MEDS ORDERED: SODIUM CHLORIDE 0.9% 1,000 ML ONE (09:01)
[2024-10-26] MEDS ORDERED: ASPI81TA87 PO (11:07)
[2024-10-26] MEDS ORDERED: CARV-165 PO (11:08)
[2024-10-26] MEDS ORDERED: TICA90TA PO (11:08)
[2024-10-26] MEDS ORDERED: AMLO-257 PO (11:16)
[2024-10-26] MEDS ORDERED: SITA25 PO (11:17)
[2024-10-26] MEDS ORDERED: HEPARIN SODIUM,PORCINE 1,000 UNITS/ML VIAL IVP ONE (14:54)
[2024-10-26 20:05] LABS: GLUCOMETER DEV NAME(LOC) 5N.2C; GLUCOSE,POINT OF CARE 159 MG/DL (70-110)
== END 2024-10-26 14:55 | disposition home health service (06) | DRG 321 ==
LOC: EMS 00:56 → EDH 05:05 → ICU 06:04 → 5N 10-17 14:50
PROVIDERS: ADMIT Internal Medicine; ATTEND Internal Medicine
PROC: 5A1945Z Respiratory Ventilation, 24-96 Consecutive Hours (ICD-10-PCS; principal; 2024-10-15)
PROC: 0BH17EZ Insertion of Endotracheal Airway into Trachea, Via Natural or Artificial Opening (ICD-10-PCS; 2024-10-15)
PROC: 5A09357 Assistance with Respiratory Ventilation, Less than 24 Consecutive Hours, Continuous Positive Airway Pressure (ICD-10-PCS; 2024-10-15)
PROC: 027034Z Dilation of Coronary Artery, One Artery with Drug-eluting Intraluminal Device, Percutaneous Approach (ICD-10-PCS; 2024-10-17)
PROC: B2111ZZ Fluoroscopy of Multiple Coronary Arteries using Low Osmolar Contrast (ICD-10-PCS; 2024-10-17)
PROC: 02HV33Z Insertion of Infusion Device into Superior Vena Cava, Percutaneous Approach (ICD-10-PCS; 2024-10-19)
PROC: B5181ZA Fluoroscopy of Superior Vena Cava using Low Osmolar Contrast, Guidance (ICD-10-PCS; 2024-10-19)
PROC: B548ZZA Ultrasonography of Superior Vena Cava, Guidance (ICD-10-PCS; 2024-10-19)
PROC: 5A1D70Z Performance of Urinary Filtration, Intermittent, Less than 6 Hours Per Day (ICD-10-PCS; 2024-10-19)
PROC: 5A1D70Z Performance of Urinary Filtration, Intermittent, Less than 6 Hours Per Day (ICD-10-PCS; 2024-10-20)
PROC: 5A1D70Z Performance of Urinary Filtration, Intermittent, Less than 6 Hours Per Day (ICD-10-PCS; 2024-10-21)
PROC: 5A1D70Z Performance of Urinary Filtration, Intermittent, Less than 6 Hours Per Day (ICD-10-PCS; 2024-10-23)
PROC: 0JH63XZ Insertion of Tunneled Vascular Access Device into Chest Subcutaneous Tissue and Fascia, Percutaneous Approach (ICD-10-PCS; 2024-10-24)
PROC: 02HV33Z Insertion of Infusion Device into Superior Vena Cava, Percutaneous Approach (ICD-10-PCS; 2024-10-24)
PROC: B5181ZA Fluoroscopy of Superior Vena Cava using Low Osmolar Contrast, Guidance (ICD-10-PCS; 2024-10-24)
PROC: 03PYX3Z Removal of Infusion Device from Upper Artery, External Approach (ICD-10-PCS; 2024-10-24)
PROC: 5A1D70Z Performance of Urinary Filtration, Intermittent, Less than 6 Hours Per Day (ICD-10-PCS; 2024-10-24)
PROC: 5A1D70Z Performance of Urinary Filtration, Intermittent, Less than 6 Hours Per Day (ICD-10-PCS; 2024-10-26)
DX: I21.4 Non-ST elevation (NSTEMI) myocardial infarction (principal); I50.23 Acute on chronic systolic (congestive) heart failure; J96.01 Acute respiratory failure with hypoxia; J18.9 Pneumonia, unspecified organism; N18.6 End stage renal disease; I16.1 Hypertensive emergency; E87.20 Acidosis, unspecified; N17.9 Acute kidney failure, unspecified; J98.11 Atelectasis; Z99.11 Dependence on respirator [ventilator] status; I13.2 Hypertensive heart and chronic kidney disease with heart failure and with stage 5 chronic kidney disease, or end stage renal disease; Z20.822 Contact with and (suspected) exposure to COVID-19; E11.65 Type 2 diabetes mellitus with hyperglycemia; E11.22 Type 2 diabetes mellitus with diabetic chronic kidney disease; I71.9 Aortic aneurysm of unspecified site, without rupture; E87.5 Hyperkalemia; D63.1 Anemia in chronic kidney disease; I25.10 Atherosclerotic heart disease of native coronary artery without angina pectoris; Z83.3 Family history of diabetes mellitus; Z98.61 Coronary angioplasty status; Z99.2 Dependence on renal dialysis
CPT/HCPCS: 31500; 36245; 36556; 36561; 70450; 71045; 72125; 74174; 74175; 76000; 80048; 80053; 80061; 80076; 81001; 81002; 82550; 82805; 82962; 83036; 83735; 83880; 84484; 85025; 85610; 85730; 87040; 87070; 87081; 87340; 87804; 90935; 92526; 92610; 92920; 92928; 93005; 93306; 94002; 94003; 96374; 96375; 97116; 97163; 97166; 97530; 97535; 99291; J0360; J0461; J0885; J1644; J1815; J1940; J1956; J2150; J2250; J2405; J2470; J2543; J2704; J3010; J3480; J3490; J7030; J7040; J7050; J7060; Q9967; 36415-L1; 36415-TC; Z7610